=== PATIENT | male | born 1985 | race Two or more races ===

== ENCOUNTER 2024-07-23 14:18 | Emergency (ER) | payer MEDICAID ==
[~2024-07-23] VITALS: Ht 167.6 cm; Wt 83.6 kg
[2024-07-23 14:28] VITALS: BP 128/72; PULSE 65; RESP 20; TEMP 98.2; O2SAT 100
[2024-07-23] MEDS: KETOROLAC TROMETHAMINE 30 MG/ML VIAL IM ONE (17:04)
== END 2024-07-23 17:28 | disposition home or self-care (01) ==
LOC: EMS 15:01
DX: G44.209 Tension-type headache, unspecified, not intractable (principal)
CPT/HCPCS: 99283; 96372; J1885